=== PATIENT | male | born 1975 | race Caucasian/White ===

== ENCOUNTER 2022-09-25 05:56 | Observation (INO) ==
[2022-09-25] MEDS ORDERED: ONDANSETRON INJ 2 MG/ML 2 ML VIAL IV STA (06:40)
[2022-09-25] MEDS ORDERED: SODIUM CHLORIDE 0.9% 1000ML 1,000 ML IV ONE (06:40)
[2022-09-25] MEDS ORDERED: ACETAMINOPHEN 1,000 MG/100 ML VIAL IV STA (06:40)
[2022-09-25 06:41] LABS: Basophils # (auto) 0.03 K/uL (0-0.2); Basophils % (auto) 0.4 %; Eosinophils # (auto) 0.31 K/uL (0-0.50); Eosinophils % (auto) 3.8 %; Hematocrit (blood only) 48.4 % (42.0-52.0); Hemoglobin 17.3 g/dl (14.0-18.0); Immature Granulocytes # (auto) 0.01 K/uL (0.01-0.20); Immature Granulocytes % (auto) 0.1 %; Lymphocytes # (auto) 1.74 K/uL (1.2-3.4); Lymphocytes % (auto) 21.2 %; Mean Corpuscular Hemoglobin 33.1 pg (25.0-34.0); Mean Corpuscular Hgb Conc 35.7 g/dL (32.0-36.0); Mean Corpuscular Volume 92.5 fL (80.0-100.0); Mean Platelet Volume 8.9 fL (9.4-12.4); Monocytes # (auto) 0.91 K/uL (0.11-0.59); Monocytes % (auto) 11.1 %; Neutrophils # (auto) 5.21 K/uL (1.40-6.50); Neutrophils % (auto) 63.4 %; Platelet Count 224 K/uL (130-400); RDW Coefficient of Variation 12.3 % (11.5-14.5); RDW Standard Deviation 42.2 fL (36.4-46.3); Red Blood Count 5.23 M/uL (4.70-6.10); White Blood Count 8.21 K/ul (4.8-10.8)
--- NOTE | 2022-09-25 06:43 | Emergency Department Note ---
Impression & Plan Partial small bowel obstruction, Factor V Leiden mutation, Acute upper abdominal pain, Vomiting ED Provider Note Name: GAIL DIMAS Age: 47 Sex: M Arrives Via: Walk-In Informant: Patient, ED Provider: Edward Walton MD Chief Complaint: Abdominal pain Impression: As per impressions above Medical Decision Makin-year-old healthy male with a history of factor V Leiden who is on Eliquis arrives for evaluation of severe upper abdominal pain with recurrent vomiting ov er the last 2 days. On examination he has moderate tenderness palpation of the upper abdomen with hyperactive bowel sounds. With the recurrent vomiting I do feel that CT imaging is indicated. Patient does not have any surgical history of his abdomen or other significant abdominal issues. Patient was given IV Tylenol, Zofran, fluids and really does feel somewhat improved following diagnosis. Labs are unremarkable. CT does reveal evidence of partial small bowel obstruction. This is consistent with his hyperactive bowel sounds and vomiting. His stomach is distended he is not actively vomiting he does not feel actively nauseous though he still has some discomfort in his abdomen. I do not feel we need to do NG tube quite at this time. Given no surgical history with a small bowel obstruction I do feel that hospitalization is indicated. I reviewed the case with on-call general surgery who advised hospitalist evaluation and monitoring overnight. They will follow along with the hospitalist team. Patient does not exhibit like an acutely surgical abdomen without peritonitis at this time. He declines further pain medication stating that the IV Tylenol seems to have helped. Hospitalist consulted for further management. Prior Medical Record and Triage/Nursing Notes reviewed by Me Differentials:Pancreatitis, peptic ulcer disease, GERD, cholecystitis, diverticulitis, obstruction, mesenteric ischemia, occlusion, aortic pathology, renal colic amongst multiple other pathologies considered. Vital Signs: reviewed and remarkable for moderately hypertensive on arrival Interventions: Tylenol IV, Zofran IV, normal saline bolus Labs:Reviewed and remarkable for no significant abnormalities other than some mild hyperglycemia Imaging:CT imaging and formal review by me of the abdomen and pelvis with IV contrast reveals findings consistent with a partial versus small bowel obstruction this was confirmed by radiologist Consults:Dr. Patrick of general surgery. Dr. Hansen of the [facility] Hospitalist service Plan: Disposition:Hospitalization. Condition: Good History of Present Illness:47-year-old gentleman arrives for evaluation of abdominal pain. Patient notes he developed nausea and vomiting 2 days ago. This is rapidly worsened. He is now associated with upper abdominal pain. Note s stabbing bandlike pain across the upper abdomen. No radiation to back or lower abdomen. No fevers, chills, chest pain, shortness of breath, back pain, leg swelling, calf pain, urinary/bowel symptoms or other concerning signs or symptoms. He denies any blood in his normal stool he had yesterday. Denies any blood in his emesis. He is on Eliquis for factor V. He did not take his morning Eliquis dose. He tried Tylenol last night for the pain without improvement. Does note both of his children had a GI bug last week they did not seem to have the amount of abdominal pain that he has been having. No previous abdominal surgeries. Denies any falls or injuries. Past History:Factor V, see chart for further history Home Medications:Eliquis Allergies:nkda Vitals:Blood Pressure: 149/104, Pulse 90, RR 18, T 37.2C, O2 98% on RA Physical Exam: GENERAL: Patient is very uncomfortable appearing and in moderate distress. EYES: No scleral icterus, unremarkable pupils. RESPIRATORY: No dyspnea. Clear to auscultation and equal bilaterally. No wheeze, no rhonchi. CARDIOVASCULAR: Regular rate and rhythm.No murmurs, rubs, gallops appreciated. GASTROINTESTINAL: Diffuse upper abdominal TTP with mildly hyperactive bowel sounds, no peritonitis, BACK: No midline tenderness, no CVA tenderness EXTREMITIES: Normal motion all extremities, no cyanosis, no edema. NEUROLOGIC: Alert and oriented, no focal weakness appreciated SKIN: No rash, no jaundice, no diaphoresis. PSYCH: Appropriate GCS: 15 ED Course: Times/Reassessments: Patient is feeling much better after medications declining further pain meds. Agreeable to hospitalization after discussing findings of CT scan. Edward Walton MD Past Med/Surg History Medical History (Updated 09/25/22 @ 18:43 by Edward Walton MD) Factor V Leiden mutation (11/14/12) Hx of deep venous thrombosis MTHFR gene mutation Pulmonary embolism Surgical History (Updated 09/25/22 @ 10:18 by Francie Tobar PA-C) History of nasal surgery Broken nose fixed Family History (Updated 09/25/22 @ 10:48 by Francie Tobar PA-C) Father Heart disease Grandmother (Maternal) Diabetes Social History (Updated 09/25/22 @ 10:19 by Francie Tobar PA-C) Smoking Status: Never smoker Tobacco Type: Cigarettes packs per day: 0.5; Smoking End Date: 06/25/2019; Second Hand Exposure: No; Do You Dip or Chew Tobacco: No; Tobacco Cessation Education Requested by Patient: No Hx Alcohol Use: Yes Alcohol type: beer Hx Substance Use: No Preferred Language: Italian Communication Ability: Effective [place] Required: No Beliefs That Will Affect Care: None Current Living Situation: Family Other Information That Helps Us Care for You: No Feels Safe at Home: Yes Assistive Devices: Glasses Allergies Allergies Allergy/AdvReac Type Severity Reaction Status Date / Time No Known Allergies Allergy Unverified 11/14/12 11:48 Home Meds Home Medications Medication Instructions Recorded Confirmed apixaban 5 mg tablet (Eliquis) 5 mg PO BID 09/25/22 09/25/22 cyanocobalamin (vitamin B-12) 1,000 mcg PO DAILY 09/25/22 09/25/22 1,000 mcg tablet (Vitamin B-12) folic acid 1 mg tablet 1 mg PO DAILY 09/25/22 09/25/22 Results & Data (ED) Vital Signs Vital Signs - 24 hr 09/25/22 05:58 09/25/22 06:26 Temperature 37.2 C Temperature Source Oral Pulse Rate 106 H Pulse Rate [Right] 90 Respiratory Rate 16 18 Respiratory Effort / Characteristics Non-Labored Spontaneous Non-Labored Respiratory Depth Normal Normal Respiratory Pattern Regular Regular Blood Pressure 126/94 Blood Pressure [Right Arm] 149/104 H Blood Pressure Mean 104 Blood Pressure Mean [Right Arm] 119 Blood Pressure Position [Right Arm] Sitting Pulse Oximetry 96 98 Oxygen Delivery Method Room Air Room Air Sepsis Recent Fever Within 48 Hours No Sepsis New/Unexplained Change in Mental Status No Sepsis Action Taken by Nursing No Action Required Laboratory Data 09/25/22 06:20 09/25/22 06:20 Lab Results 09/25/22 09/25/22 Range/Units 06:20 06:20 WBC 8.21 (4.8-10.8) K/ul RBC 5.23 (4.70-6.10) M/uL Hgb 17.3 (14.0-18.0) g/dl Hct 48.4 (42.0-52.0) % MCV 92.5 (80.0-100.0) fL MCH 33.1 (25.0-34.0) pg MCHC 35.7 (32.0-36.0) g/dL RDW Std Deviation 42.2 (36.4-46.3) fL RDW Coeff of Aruna 12.3 (11.5-14.5) % Plt Count 224 (130-400) K/uL MPV 8.9 L (9.4-12.4) fL Immature Gran % (Auto) 0.1 % Neut % (Auto) 63.4 % Lymph % (Auto) 21.2 % [place] % (Auto) 11.1 % Eos % (Auto) 3.8 % Baso % (Auto) 0.4 % Neut # (Auto) 5.21 (1.40-6.50) K/uL Lymph # (Auto) 1.74 (1.2-3.4) K/uL [place] # (Auto) 0.91 H (0.11-0.59) K/uL Eos # (Auto) 0.31 (0-0.50) K/uL Baso # (Auto) 0.03 (0-0.2) K/uL Immature Gran # (Auto) 0.01 (0.01-0.20) K/uL Sodium 136 (136-145) mmol/L Potassium 3.6 (3.5-5.1) mmol/L Chloride 103 (98-107) mmol/L Carbon Dioxide 27 (21-32) mmol/L Anion Gap 6 (3-11) BUN 15 (6-23) mg/dl Creatinine 0.89 (0.6-1.4) mg/dl Est Cr Clr Drug Dosing 115.7 ml/min Est GFR ( Amer) 116.4 ml/min Est GFR (Non-Af Amer) 100.4 ml/min BUN/Creatinine Ratio 16.9 (10-20) Glucose 115 H (70-99(Fasting)) mg/dl Calcium 9.0 (8.5-10.1) mg/dl Total Bilirubin 0.5 (0.2-1.0) mg/dl AST 19 (13-39) U/L ALT 23 (7-52) U/L Alkaline Phosphatase 51 (34-104) U/L Total Protein 7.3 (6.0-8.3) gm/dl Albumin 3.8 (3.4-5.0) gm/dl Globulin 3.5 (2.5-4.0) gm/dl Albumin/Globulin Ratio 1.1 (0.9-2) Lipase 12 (11-82) U/L Administered Medications Sodium Chloride (Nss) 500 mls @ 80 mls/hr IV .Q6H15M CHICHI Stop: 09/26/22 01:30 Last Admin: 09/25/22 17:07 Dose: 80 mls/hr Documented By: Infusion: 09/25/22 17:07 Dose: 80 mls/hr Documented By: Admin: 09/25/22 13:30 Dose: 80 mls/hr Documented By: KEN Acetaminophen (Ofirmev) 1,000 mg in 100 mls @ 400 mls/hr IV Q8H CHICHI Stop: 09/28/22 14:59 Last Admin: 09/25/22 16:59 Dose: Not Given Documented By: TERRANCE Morphine Sulfate (Morphine Sulfate 2 Mg/Ml Carp) 2 mg IV Q4H PRN PRN Reason: Pain, moderate rating 4,5,6 Stop: 10/09/22 11:14 Last Admin: 09/25/22 16:45 Dose: 2 mg Documented By: ADDISON Discontinued Medications Acetaminophen (Ofirmev) 1,000 mg in 100 mls @ 400 mls/hr IV NOW STA Stop: 09/25/22 06:54 Last Infusion: 09/25/22 07:19 Dose: 0 mls/hr Documented By: Admin: 09/25/22 07:04 Dose: 400 mls/hr Documented By: Sodium Chloride (Nss 1000ml) 1,000 mls @ 999 mls/hr IV .Q1H1M ONE Stop: 09/25/22 07:40 Last Infusion: 09/25/22 08:05 Dose: 0 mls/hr Documented By: Admin: 09/25/22 07:04 Dose: 999 mls/hr Documented By: Ioversol (Optiray 350 100ml) 94 ml IV ONCE ONE Stop: 09/25/22 08:29 Last Admin: 09/25/22 08:28 Dose: 94 ml Documented By: AIXA Ketorolac Tromethamine (Ketorolac Tromethamine 15 Mg/Ml Vial) 15 mg IV NOW ONE Stop: 09/25/22 14:34 Last Admin: 09/25/22 16:58 Dose: Not Given Documented By: TERRANCE Ondansetron HCl (Ondansetron Inj 2 Mg/Ml 2 Ml Vial) 4 mg IV NOW STA Stop: 09/25/22 06:41 Last Admin: 09/25/22 07:04 Dose: 4 mg Documented By: ENS Imaging Data Radiologist's Impression: Abdomen/Pelvis CT 09/25/22 06:[address] WITH IV CONTRAST CT DOSE: 1221.58 mGy.cm HISTORY: Acute generalized abdominal pain diffuse upper abdominal pain TECHNIQUE: Multiaxial CT images of the abdomen and pelvis were performed following the IV administration of 94 cc of Optiray, A dose lowering technique was utilized adhering to the principles of ALARA. COMPARISON STUDY: Scrotal ultrasound 11/09/2013 FINDINGS: The imaged lower chest demonstrates no acute abnormality. The heart is upper limits of normal in size. No pneumatosis or pneumoperitoneum. The spleen, pancreas, gallbladder, adrenal glands and liver appear unremarkable. Patency of the hepatic and portal veins. There are a few subcentimeter hypodense foci of the kidneys which are too small to characterize, likely cysts. No hydronephrosis. Prostamegaly. Mild urinary bladder wall thickening with partial distention. Aorta and IVC are unremarkable. No lymphadenopathy. Colonic diverticulosis. Air-fluid levels are noted throughout the colon and rectum. Noninflamed appendix. Fluid-filled mildly dilated loops of small bowel measure up to 3.2 cm. Mild interloop edema with trace ascites. Decompressed loops of bowel within the abdominal right lower quadrant. No significant bowel wall thickening identified. Tiny fat filled umbilical hernia. No acute fracture. IMPRESSION: 1. Several mildly dilated air and fluid-filled loops of small bowel within the abdomen and pelvis are noted with decompressed loops within the right lower quadrant. Findings are suggestive of a partial small bowel obstruction. Follow- up is needed. 2. Mild interloop edema with trace ascites. 3. Colonic diverticulosis. 4. Normal appendix. ACT 112: Negative or not required by law. The above report was generated using voice recognition software. It may contain grammatical, syntax or spelling errors. Electronically signed by: Patrick Madrigal M.D. 09/25/2022 9:01 AM Discharge Plan Visit Data Chief Complaint: Abdominal Pain Stated Complaint: SEVERE ABDOMINAL PAIN ED Provider: Edward Walton Discharge Problem: Partial small bowel obstruction, Factor V Leiden mutation, Acute upper abdominal pain, Vomiting Patient Disposition: Admitted As Inpatient Discharge Instructions Interventions: ED Discharge Assessment Last Done: 09/25/22 13:01
[2022-09-25 06:53] LABS: Albumin Globulin Ratio 1.1 (0.9-2); Albumin Level 3.8 gm/dl (3.4-5.0); BUN Creatinine Ratio 16.9 (10-20); Bilirubin,Total 0.5 mg/dl (0.2-1.0); Creatinine Clr Calc Pharmacy 115.7 ml/min; Est GFR (African American) 116.4 ml/min; Est GFR (Non-African American) 100.4 ml/min; Globulin 3.5 gm/dl (2.5-4.0); Potassium 3.6 mmol/L (3.5-5.1); Total Protein 7.3 gm/dl (6.0-8.3)
[2022-09-25] MEDS ORDERED: OPTIRAY 350 100ml IV ONE (08:28)
--- NOTE | 2022-09-25 09:02 | CT Scan Report ---
ABDOMEN AND PELVIS CT WITH IV CONTRAST CT DOSE: 1221.58 mGy.cm HISTORY: Acute generalized abdominal pain diffuse upper abdominal pain TECHNIQUE: Multiaxial CT images of the abdomen and pelvis were performed following the IV administrat ion of 94 cc of Optiray, A dose lowering technique was utilized adhering to the principles of ALARA. COMPARISON STUDY: Scrotal ultrasound 11/09/2013 FINDINGS: The imaged lower chest demonstrates no acute abnormality. The heart is upper limits of norm al in size. No pneumatosis or pneumoperitoneum. The spleen, pancreas, gallbladder, adrenal glands and liver appear unremarkable. Patency of the hepatic and portal veins. There are a few subcentimeter hypodense foci of the kidneys which are too small to characterize, like ly cysts. No hydronephrosis. Prostamegaly. Mild urinary bladder wall thickening with partial distenti on. Aorta and IVC are unremarkable. No lymphadenopathy. Colonic diverticulosis. Air-fluid levels are noted throughout the colon and rectum. Noninflamed appen alverto. Fluid-filled mildly dilated loops of small bowel measure up to 3.2 cm. Mild interloop edema with trace ascites. Decompressed loops of bowel within the abdominal right lower quadrant. No significant bowel wall thickening identified. Tiny fat filled umbilical hernia. No acute fracture. IMPRESSION: 1. Several mildly dilated air and fluid-filled loops of small bowel within the abdomen and pelvis are noted with decompressed loops within the right lower quadrant. Findings are suggestive of a partial small bowel obstruction. Follow-up is needed. 2. Mild interloop edema with trace ascites. 3. Colonic diverticulosis. 4. Normal appendix. ACT 112: Negative or not required by law. The above report was generated using voice recognition software. It may contain grammatical, syntax o r spelling errors. Electronically signed by: Patrick Madrigal M.D. 09/25/2022 9:01 AM
--- NOTE | 2022-09-25 10:22 | History & Physical Report ---
Date of Service September 25, 2022 Assessment & Plan (1) Partial small bowel obstruction: (2) Factor V Leiden mutation: (3) MTHFR gene mutation: (4) Obesity (BMI 35.0-39.9 without comorbidity): Plan: -Admit to [facility] -Check lactic acid, blood cultures, Check covid swab, influ and rsv, stool culture PCR as patient reports having children with viral illness last week. Most likely that partial small bowel obstruction seen on imaging today is secondary to viral etiology and inflammation of the bowel, likely will improve with conservative treatment. -CT imaging reviewed personally, and reviewed with the patient at bedside to show him the partial SBO -Pain control with IV Tylenol Q8Hprn, allow IV MS Q4H prn for breakthrough pain -N.p.o., allow ice chips to wet mouth -May continue Eliquis - hx of PE and DVT years ago. Encourage ambulation while in hospital -General surgery consulted, appreciate input, conservative treatment, no current needs for surgical procedure -Encourage diet and weight loss with BMI of 36.1 DVT PPx: SCDs, Eliquis, encourage ambulation Code: Full Likely to remain in the hospital overnight, possible discharge within 1 to 2 days A total of 75 minutes were spent with greater than 50% of that time face to face with the patient, personally reviewing all current laboratories, imaging studies, past medication reconciliation, outpatient chart review, and discussion with specialists to collaborate care for the patient with attending. Please see attending documentation for corrections and/or additions. History of Present Illness Chief Complaint: Abdominal Pain Primary Care Provider: Pj Elaine MD This is a 47 yo M with PMHx of Factor V Leiden, MTHFR mutation, with hx of PE , tobacco use disorder, obesity with BMI of 26 and hx of COVID-19 who presents with worsening abdominal pain for the past 2 days. He notes that on Friday after eating lunch she became ill, with nausea, vomiting and abdominal pain. He was unable to tolerate much p.o. intake the rest of Friday. Again on Friday he proceeded to have 2 bouts of nausea and vomiting with mostly bile-like emesis. He has been bloated as well. This morning he again was nauseous and vomited. He also reports having 1 bowel movement this morning which was normal formed stool, no blood. He has not passed any flatus since bowel movement today. He notes that his 2 children ages 8 and 9 had GI illness last week 1 at the beginning of the week and the other had it later in the week with nausea and vomiting. So initially the patient presumed that he had same thing as his kids did. Due to progressive pain he presented to the ER. He has not had anything to eat or drink today. Patient did take his morning Eliquis. He denies any history of surgeries other than fixing a broken nose many years ago. Denies any abdominal procedures or prior issues with bowels. Imaging reveals partial small bowel obstruction with trace ascites, colonic diverticulosis. Discussion was held with Dr. Patrick, general surgery at bedside, he agrees to proceed with conservative treatment. No need for NG tube or surgical procedure at this time. Allergies Allergy/AdvReac Type Severity Reaction Status Date / Time No Known Allergies Allergy Unverified 11/14/12 11:48 Home Medications Medication Instructions Recorded Confirmed Type apixaban 5 mg tablet (Eliquis) 5 mg PO BID 09/25/22 09/25/22 History cyanocobalamin (vitamin B-12) 1,000 mcg PO DAILY 09/25/22 09/25/22 History 1,000 mcg tablet (Vitamin B-12) folic acid 1 mg tablet 1 mg PO DAILY 09/25/22 09/25/22 History Past Med/Surg History Medical History (Updated 09/25/22 @ 18:43 by Edward Walton MD) Factor V Leiden mutation (11/14/12) Hx of deep venous thrombosis MTHFR gene mutation Pulmonary embolism Surgical History (Updated 09/25/22 @ 10:18 by Francie Tobar PA-C) History of nasal surgery Broken nose fixed Family History (Updated 09/25/22 @ 10:48 by Francie Tobar PA-C) Father Heart disease Grandmother (Maternal) Diabetes Social History (Updated 09/25/22 @ 10:19 by Francie Tobar PA-C) Smoking Status: Never smoker Tobacco Type: Cigarettes packs per day: 0.5; Smoking End Date: 06/25/2019; Second Hand Exposure: No; Do You Dip or Chew Tobacco: No; Tobacco Cessation Education Requested by Patient: No Hx Alcohol Use: Yes Alcohol type: beer Hx Substance Use: No Preferred Language: Sinhala Communication Ability: Effective Tennis Centre Manager Required: No Beliefs That Will Affect Care: None Current Living Situation: Family Other Information That Helps Us Care for You: No Feels Safe at Home: Yes Assistive Devices: Glasses Review of Systems Review of Systems: Constitutional: No fever, sweats or chills Eyes: No diplopia, no worsening or blurred vision ENT: normal hearing, no trouble swallowing Respiratory: No cough, sputum, dyspnea at rest or on exertion Cardiovascular: No chest pain, tightness or palpitations Abdomen: As per HPI, + moderate pain, distension, nausea, vomiting with alst BM this morning. Musculoskeletal: No joint pain, calf pain, swelling Neurologic: No weakness, numbness/tingling, or balance problems Psychiatric: No anxiety or depression Skin: No rash or itch Physical Exam Physical Exam: General: awake, alert, no apparent distress, obese with BMI of 36 Head: Normocephalic, atraumatic ENT: PERRL, EOMI, no pharyngeal exudate, mucous membranes moist Chest: Clear to auscultation, on room air, no adventitious breath sounds Cardiac: Regular rate and rhythm, no murmur, no JVD, normal peripheral pulses, good capillary refill Abdominal: hypoactive BS x 4 quadrants, no high pitched tinkling, mildly distended, RUQ tenderness to palpation, no rebound or guarding Extremities: Normal inspection, no peripheral edema or erythema, calfs nontender to palpation Psych: Normal mood and affect Neuro: AAO x 3, strength intact bilaterally and rated 5/5, no motor deficits, speech is clear, no peripheral sensory deficits Results & Data Results & Data ([facility]) Vital Signs (Past 12 Hours) Vital Signs Temp Pulse Pulse Resp BP BP Pulse Ox 09/25/22 06:26 90 18 149/104 H 98 09/25/22 05:58 37.2 C 106 H 16 126/94 96 O2 Del Method 09/25/22 06:26 Room Air 09/25/22 05:58 Room Air Laboratory Results 09/25/22 09/25/22 06:20 06:20 WBC 8.21 RBC 5.23 Hgb 17.3 Hct 48.4 MCV 92.5 MCH 33.1 MCHC 35.7 RDW Std Deviation 42.2 RDW Coeff of Aruna 12.3 Plt Count 224 MPV 8.9 L Immature Gran % (Auto) 0.1 Neut % (Auto) 63.4 Lymph % (Auto) 21.2 [place] % (Auto) 11.1 Eos % (Auto) 3.8 Baso % (Auto) 0.4 Neut # (Auto) 5.21 Lymph # (Auto) 1.74 [place] # (Auto) 0.91 H Eos # (Auto) 0.31 Baso # (Auto) 0.03 Immature Gran # (Auto) 0.01 Sodium 136 Potassium 3.6 Chloride 103 Carbon Dioxide 27 Anion Gap 6 BUN 15 Creatinine 0.89 Est Cr Clr Drug Dosing 115.7 Est GFR ( Amer) 116.4 Est GFR (Non-Af Amer) 100.4 BUN/Creatinine Ratio 16.9 Glucose 115 H Calcium 9.0 Total Bilirubin 0.5 AST 19 ALT 23 Alkaline Phosphatase 51 Total Protein 7.3 Albumin 3.8 Globulin 3.5 Albumin/Globulin Ratio 1.1 Lipase 12 Diagnostic Findings Abdomen/Pelvis CT 09/25/22 06:[address] WITH IV CONTRAST CT DOSE: 1221.58 mGy.cm HISTORY: Acute generalized abdominal pain diffuse upper abdominal pain TECHNIQUE: Multiaxial CT images of the abdomen and pelvis were performed following the IV administration of 94 cc of Optiray, A dose lowering technique was utilized adhering to the principles of ALARA. COMPARISON STUDY: Scrotal ultrasound 11/09/2013 FINDINGS: The imaged lower chest demonstrates no acute abnormality. The heart is upper limits of normal in size. No pneumatosis or pneumoperitoneum. The spleen, pancreas, gallbladder, adrenal glands and liver appear unremarkable. Patency of the hepatic and portal veins. There are a few subcentimeter hypodense foci of the kidneys which are too small to characterize, likely cysts. No hydronephrosis. Prostamegaly. Mild urinary bladder wall thickening with partial distention. Aorta and IVC are unremarkable. No lymphadenopathy. Colonic diverticulosis. Air-fluid levels are noted throughout the colon and rectum. Noninflamed appendix. Fluid-filled mildly dilated loops of small bowel measure up to 3.2 cm. Mild interloop edema with trace ascites. Decompressed loops of bowel within the abdominal right lower quadrant. No significant bowel wall thickening identified. Tiny fat filled umbilical hernia. No acute fracture. IMPRESSION: 1. Several mildly dilated air and fluid-filled loops of small bowel within the abdomen and pelvis are noted with decompressed loops within the right lower quadrant. Findings are suggestive of a partial small bowel obstruction. Follow- up is needed. 2. Mild interloop edema with trace ascites. 3. Colonic diverticulosis. 4. Normal appendix. ACT 112: Negative or not required by law. The above report was generated using voice recognition software. It may contain grammatical, syntax or spelling errors. Electronically signed by: Patrick Madrigal M.D. 09/25/2022 9:01 AM Code Status & VTE Plan Code Status Full code Supervising Physician Co-Signing Physician Notes I have seen and examined the patient and have discussed the case with the provider above. I agree with the assessment and plan as stated with the following exceptions. 47-year-old man presented with abdominal pain persisted for the past few days. Reports having children with viral illness last week. He personally reports vomiting and has no appetite. He does report one bowel movement that was normal this morning. Work-up revealed partial small bowel obstruction on CT. Patient has no history of abdominal surgery in the past. No history of early colon cancer in the family. He continues on Eliquis for history of PE and DVT in the setting of [place] HFR gene mutation and factor V Leiden mutation historically. On physical exam abdomen is slightly distended but still soft with upper greater than lower abdominal tenderness to palpation. Cardiac exam reveals S1-S2 with no evidence of murmur with a regular rate and rhythm. Lungs are clear to auscultation bilaterally. He is diaphoretic on exam, especially on his back which he says is not normal for him. No gross focal deficits from a neuromuscular perspective. He is mentating clearly. He is obese. He is in no acute distress. Imaging as above. Labs reveal no evidence of leukocytosis, lactate is normal, lipase is normal, urinalysis is concentrated with evidence of microscopic hematuria. No evidence of infection is present. SARS-CoV-2 check is negative. Overall this is a young man with recent GI illness and sick contacts presenting with fluid-filled loops of small bowel consistent with partial small bowel obstruction possibly secondary to an acute GI illness. Continue with conservative measures including bowel rest. Per surgery who saw him in the ER, there is no surgical indication now and conservative treatment with IV fluids pain control and repeat Cayley and labs in the morning as recommended. DO Tyrone
--- NOTE | 2022-09-25 11:01 | Surgery Consultation ---
Date of Consultation September 25, 2022 Assessment & Plan (1) Partial small bowel obstruction: pt is a 47 year-old male who presents to ER with 3 days history abdominal pain with nausea and vomiting, IMP: partial SBO, no surgery indication now, conservative treatment first, NPO IV fluid, control pain, repeat KUB and labs in morning, will F/U, Thnaks, History of Present Illness Reason for Consultation: partial SBO Requesting Physician: Edward Vargas MD History of Present Illness CC: abdominal pain, History of Present Illness:47-year-old gentleman arrives for evaluation of abdominal pain. Patient notes he developed nausea and vomiting 2 days ago. This is rapidly worsened. He is now associated with upper abdominal pain. Notes stabbing bandlike pain across the upper abdomen. No radiation to back or lower abdomen. No fevers, chills, chest pain, shortness of breath, back pain, leg swelling, calf pain, urinary/bowel symptoms or other concerning signs or symptoms. He denies any blood in his normal stool he had yesterday. Denies any blood in his emesis. He is on Eliquis for factor V. He did not take his morning Eliquis dose. He tried Tylenol last night for the pain without improvement. Does note both of his children had a GI bug last week they did not seem to have the amount of abdominal pain that he has been having. No previous abdominal surgeries. Denies any falls or injuries. I ( Elaine Patrick MD ) got a call for consult partial SBO, I reviewed pt's H/P, labs and CT scan with pt, pt passed BM this morning, now pt feels better, no significant abdominal pain, Past History:Factor V, see chart for further history Home Medications:Eliquis Allergies:nkda Allergies Allergy/AdvReac Type Severity Reaction Status Date / Time No Known Allergies Allergy Unverified 11/14/12 11:48 Home Medications Medication Instructions Recorded Confirmed Type Cyanocobalamin (Vitamin B-12) 1,000 mcg PO DAILY #0 tabs 11/14/12 History FOLIC ACID (FOLVITE) 1 mg PO DAILY #0 tabs 11/14/12 History WARFARIN SODIUM 7.5 mg PO DAILY #0 tabs 11/14/12 History Patient History Medical History (Updated 09/25/22 @ 10:20 by Francie Tobar PA-C) Factor V Leiden mutation (11/14/12) Hx of deep venous thrombosis MTHFR gene mutation Pulmonary embolism Surgical History (Updated 09/25/22 @ 10:18 by Francie Tobar PA-C) History of nasal surgery Broken nose fixed Family History (Updated 09/25/22 @ 10:48 by Francie Tobar PA-C) Father Heart disease Grandmother (Maternal) Diabetes Social History (Updated 09/25/22 @ 10:19 by Francie Tobar PA-C) Smoking Status: Former smoker Tobacco Type: Cigarettes packs per day: 0.5; Smoking End Date: 06/25/2019; Hx Alcohol Use: Yes Hx Substance Use: No Preferred Language: Slovenian Feels Safe at Home: Yes Review of Systems Constitutional: obesity Eyes: as per Subjective / HPI Respiratory: as per Subjective / HPI Cardiovascular: as per Subjective / HPI Gastrointestinal: as per Subjective / HPI Genitourinary: + as per Subjective / HPI Musculoskeletal: as per Subjective / HPI Neurologic: as per Subjective / HPI Psychiatric: as per Subjective / HPI Endocrine: as per Subjective / HPI Hematologic / Lymphatic: Factor V Leiden mutation Physical Exam Constitutional: obesity, no distress Eyes: PERRL, conjunctivae normal, anicteric sclerae Neck: trachea midline, no thyromegaly Respiratory: normal respiratory effort, lungs clear to auscultation Cardiovascular: RRR, no murmur, no edema Gastrointestinal (Abdomen): soft, mild tenderness at epigastric area, no rebound pain, no distend, BS +, Musculoskeletal: no cyanosis or clubbing, extremities motor strength 5/5 Neurologic: patellar DTR's 2+ bilat, sensation intact Psychiatric: A+Ox3, euthymic affect Results & Data ([facility]) Vital Signs (Past 12 Hours) Vital Signs Temp Pulse Pulse Resp BP BP Pulse Ox 09/25/22 06:26 90 18 149/104 H 98 09/25/22 05:58 37.2 C 106 H 16 126/94 96 O2 Del Method 09/25/22 06:26 Room Air 09/25/22 05:58 Room Air Laboratory Results Abnormal lab results 09/25/22 09/25/22 Range/Units 06:20 06:20 MPV 8.9 L (9.4-12.4) fL [place] # (Auto) 0.91 H (0.11-0.59) K/uL Glucose 115 H (70-99(Fasting)) mg/dl Diagnostic Findings ABDOMEN AND PELVIS CT WITH IV CONTRAST CT DOSE: 1221.58 mGy.cm HISTORY: Acute generalized abdominal pain diffuse upper abdominal pain TECHNIQUE: Multiaxial CT images of the abdomen and pelvis were performed following the IV administration of 94 cc of Optiray, A dose lowering technique was utilized adhering to the principles of ALARA. COMPARISON STUDY: Scrotal ultrasound 11/09/2013 FINDINGS: The imaged lower chest demonstrates no acute abnormality. The heart is upper limits of normal in size. No pneumatosis or pneumoperitoneum. The spleen, pancreas, gallbladder, adrenal glands and liver appear unremarkable. Patency of the hepatic and portal veins. There are a few subcentimeter hypodense foci of the kidneys which are too small to characterize, likely cysts. No hydronephrosis. Prostamegaly. Mild urinary bladder wall thickening with partial distention. Aorta and IVC are unremarkable. No lymphadenopathy. Colonic diverticulosis. Air-fluid levels are noted throughout the colon and rectum. Noninflamed appendix. Fluid-filled mildly dilated loops of small bowel measure up to 3.2 cm. Mild interloop edema with trace ascites. Decompressed loops of bowel within the abdominal right lower quadrant. No significant bowel wall thickening identified. Tiny fat filled umbilical hernia. No acute fracture. IMPRESSION: 1. Several mildly dilated air and fluid-filled loops of small bowel within the abdomen and pelvis are noted with decompressed loops within the right lower quadrant. Findings are suggestive of a partial small bowel obstruction. Follow- up is needed. 2. Mild interloop edema with trace ascites. 3. Colonic diverticulosis. 4. Normal appendix.
[2022-09-25] MEDS ORDERED: MoRPHine SULFATE 2 MG/ML CARP IV PRN (11:15)
[2022-09-25] MEDS ORDERED: MoRPHine SULFATE 4 MG/ML 1 ML CARP\\VIAL IV PRN (11:15)
[2022-09-25] MEDS ORDERED: ACETAMINOPHEN 1,000 MG/100 ML VIAL IV PRN (13:01)
[2022-09-25] MEDS: SODIUM CHLORIDE 0.9% 500 ML IV SCH ×2 (13:30→17:07)
[2022-09-25] MEDS ORDERED: KETOROLAC TROMETHAMINE 15 MG/ML VIAL IV ONE ×3 (14:33→19:35)
[2022-09-25] MEDS: ACETAMINOPHEN 1,000 MG/100 ML VIAL IV SCH ×2 (16:59→22:03)
[2022-09-25 19:08] LABS: Appearance Urine Clear (Clear); Bacteria Urine Automated Negative (Negative); Bilirubin Urine Negative (Negative); Blood Urine Trace (Negative); Color Urine Dark Yellow; Glucose Urine UA Negative (Negative); Ketones Urine 2+ (Negative); Leukocyte Esterase Urine Negative (Negative); Nitrite Urine Negative (Negative); Protein Urine Trace (Negative); Specific Gravity Urine > 1.045 (1.000-1.030); Urobilinogen Urine Negative (Negative); pH Urine 5.5 (4.5-7.5)
[2022-09-25] MEDS ORDERED: MoRPHine SULFATE 2 MG/ML CARP IV STA (19:20)
[2022-09-25] MEDS: APIXABAN 5 MG TABLET PO SCH (20:28)
[2022-09-26] MEDS: D5W AND NSS 1,000 ML IV SCH ×3 (04:17→20:28)
[2022-09-26] MEDS: ACETAMINOPHEN 1,000 MG/100 ML VIAL IV SCH ×3 (06:14→23:00)
[2022-09-26] MEDS: APIXABAN 5 MG TABLET PO SCH (08:37)
[2022-09-26 08:42] LABS: Hematocrit (blood only) 42.3 % (42.0-52.0); Hemoglobin 14.9 g/dl (14.0-18.0); Mean Corpuscular Hemoglobin 32.7 pg (25.0-34.0); Mean Corpuscular Hgb Conc 35.2 g/dL (32.0-36.0); Mean Platelet Volume 8.9 fL (9.4-12.4); Platelet Count 215 K/uL (130-400); RDW Coefficient of Variation 12.5 % (11.5-14.5); Red Blood Count 4.55 M/uL (4.70-6.10); White Blood Count 6.81 K/ul (4.8-10.8)
[2022-09-26 09:42] LABS: Basophils # (auto) 0.03 K/uL (0-0.2); Basophils % (auto) 0.4 %; Eosinophils # (auto) 0.41 K/uL (0-0.50); Eosinophils % (auto) 5.8 %; Immature Granulocytes # (auto) 0.02 K/uL (0.01-0.20); Immature Granulocytes % (auto) 0.3 %; Lymphocytes # (auto) 1.84 K/uL (1.2-3.4); Lymphocytes % (auto) 26.2 %; Monocytes # (auto) 0.75 K/uL (0.11-0.59); Monocytes % (auto) 10.7 %; Neutrophils # (auto) 3.97 K/uL (1.40-6.50); Neutrophils % (auto) 56.6 %
[2022-09-26 10:10] LABS: INR 1.1 (0.9-1.1); Partial Thromboplastin Ratio 1.1; Partial Thromboplastin Time 30.6 Seconds (21.0-31.0); Prothrombin Time 11.4 Seconds (9.0-12.0)
[2022-09-26 11:05] LABS: BUN Creatinine Ratio 22.9 (10-20); Calcium 8.3 mg/dl (8.5-10.1); Creatinine Clr Calc Pharmacy 144.3 ml/min; Est GFR (African American) 128.4 ml/min; Est GFR (Non-African American) 110.8 ml/min; Phosphorus 2.5 mg/dl (2.5-4.9); Potassium 3.6 mmol/L (3.5-5.1)
--- NOTE | 2022-09-26 11:08 | XRay Report ---
KUB CLINICAL HISTORY: Follow-up small bowel obstruction. FINDINGS: 3 AP supine abdominal radiographs are correlated with abdominal CT dated 09/25/2022. There ar e persistent distended and gas-filled loops of small bowel which measure up to 3.6 cm. This likely re presents persistent small bowel obstruction. There is no complete obstruction, as gas is noted within the colon. No evidence of intraperitoneal free air is seen on these supine images. There are no abno rmal abdominal calcifications. The bony structures appear intact. IMPRESSION: There is evidence of persistent small bowel obstruction. This is likely partial. Electronically signed by: Rios Larson M.D. 09/26/2022 11:07 AM
--- NOTE | 2022-09-26 15:37 | Hospitalist Progress Note ---
Date of Service September 26, 2022 Assessment & Plan (1) Partial small bowel obstruction: (2) Factor V Leiden mutation: (3) MTHFR gene mutation: (4) Obesity (BMI 35.0-39.9 without comorbidity): Plan: This is a 47 yo M with PMHx of Factor V Leiden, MTHFR mutation, with hx of PE , tobacco use disorder, obesity with BMI of 26 and hx of COVID-19 who presents with worsening abdominal pain for the past 2 days and was found to have small bowel obstruction. Partial small bowel obstruction Possibly secondary to an acute GI illness KUB still showing persistent partial SBO; reviewed personally Pain control with IV Tylenol Q8Hprn, allow IV MS Q4H prn for breakthrough pain General surgery consulted, appreciate input, conservative treatment, no current needs for surgical procedure N.p.o., allow ice chips to wet mouth - diet advancement per surgery Factor V Leiden mutation MTHFR gene mutation May continue Eliquis - hx of PE and DVT years ago. Encourage ambulation while in hospital Obesity Encourage diet and weight loss with BMI of 36.1 DVT PPx: SCDs, Eliquis, encourage ambulation Code: Full Admitted to med/surg A total of 35 minutes were spent with greater than 50% of that time face to face with the patient, personally reviewing all current laboratories, imaging studies, past medication reconciliation, outpatient chart review, and discussion with specialists to collaborate care for the patient with attending. Please see attending documentation for corrections and/or additions. Admission and Anticipated Discharge Date Admission Date: September 25, 2022 Supervising Physician Co-Signing Physician Notes Patient is seen and examined at bedside. Abdominal pain resolved. Denies any nausea, vomiting, chest pain, dyspnea. + Flatus, no bowel movement this morning. On exam patient is obese, no apparent distress, normocephalic atraumatic, EOMI, normal breath sounds, clear to auscultation, S1-S2, no murmur, no pedal edema, abdomen soft, nontender, decreased bowel sounds, alert, awake, oriented, grossly no focal deficits. Patient is admitted for management of partial small bowel obstruction. KUB from this morning suggestive of persistent partial SBO. Continue IV fluids, bowel rest, and pain control. Appreciate surgery input. Factor V Leiden mutation, MTHFR gene mutation: we will hold Eliquis for now. IV heparin while hospitalized. I personally reviewed the record. Patient is interviewed and examined at bedside. Patient's care is coordinated with Zahira Jordan PA-C. Please refer to the documentation above for details of patient's presentation and for discussion of other issues. Subjective Seen and examined in 378-2. Feeling much better this morning. No longer nauseated and no vomiting or abdominal pain. Passing flatus. No fever, chills, lightheadedness, CP, SOB, dysuria. Review of Systems Review of Systems: At least ten systems reviewed and negative except as noted in the HPI. Physical Exam Physical Exam: Gen: WD/WN, NAD, sitting in bed, A&Ox3 HEENT: Normocephalic, atraumatic, conjunctivae moist, sclerae anicteric, mucous membranes moist Lung: Clear to Auscultation bilaterally, no wheezes/rales/rhonchi Heart: Regular rate, regular rhythm, no murmurs, rubs, or gallops Abdomen: Soft, NT, ND, hypoactive bowel sounds Extremities: no edema Skin: Warm, no rash Results & Data Results & Data ([facility]) Vital Signs (Past 12 Hours) Vital Signs Temp Pulse Resp BP Pulse Ox O2 Del Method 09/26/22 07:53 36.6 C 57 L 20 94/53 L 92 Room Air Laboratory Results Short CBC 09/26/22 Range/Units 08:16 WBC 6.81 (4.8-10.8) K/ul Hgb 14.9 (14.0-18.0) g/dl Hct 42.3 (42.0-52.0) % Plt Count 215 (130-400) K/uL BMP 09/26/22 08:16 Sodium 138 Potassium 3.6 Chloride 106 Carbon Dioxide 30 BUN 16 Creatinine 0.70 Glucose 91 Calcium 8.3 L Urine 09/25/22 Range/Units 18:35 Urine Color Dark Yellow Urine Appearance Clear (Clear) Urine pH 5.5 (4.5-7.5) Ur Specific [place] > 1.045 H (1.000-1.030) Urine Protein Trace H (Negative) Urine Glucose (UA) Negative (Negative) Diagnostic Findings Abdomen/Pelvis CT 09/25/22 06:[address] WITH IV CONTRAST CT DOSE: 1221.58 mGy.cm HISTORY: Acute generalized abdominal pain diffuse upper abdominal pain TECHNIQUE: Multiaxial CT images of the abdomen and pelvis were performed following the IV administration of 94 cc of Optiray, A dose lowering technique was utilized adhering to the principles of ALARA. COMPARISON STUDY: Scrotal ultrasound 11/09/2013 FINDINGS: The imaged lower chest demonstrates no acute abnormality. The heart is upper limits of normal in size. No pneumatosis or pneumoperitoneum. The spleen, pancreas, gallbladder, adrenal glands and liver appear unremarkable. Patency of the hepatic and portal veins. There are a few subcentimeter hypodense foci of the kidneys which are too small to characterize, likely cysts. No hydronephrosis. Prostamegaly. Mild urinary bladder wall thickening with partial distention. Aorta and IVC are unremarkable. No lymphadenopathy. Colonic diverticulosis. Air-fluid levels are noted throughout the colon and rectum. Noninflamed appendix. Fluid-filled mildly dilated loops of small bowel measure up to 3.2 cm. Mild interloop edema with trace ascites. Decompressed loops of bowel within the abdominal right lower quadrant. No significant bowel wall thickening identified. Tiny fat filled umbilical hernia. No acute fracture. IMPRESSION: 1. Several mildly dilated air and fluid-filled loops of small bowel within the abdomen and pelvis are noted with decompressed loops within the right lower quadrant. Findings are suggestive of a partial small bowel obstruction. Follow- up is needed. 2. Mild interloop edema with trace ascites. 3. Colonic diverticulosis. 4. Normal appendix. ACT 112: Negative or not required by law. The above report was generated using voice recognition software. It may contain grammatical, syntax or spelling errors. Electronically signed by: Patrick Madrigal M.D. 09/25/2022 9:01 AM KUB X-Ray 09/26/22 07:00 KUB CLINICAL HISTORY: Follow-up small bowel obstruction. FINDINGS: 3 AP supine abdominal radiographs are correlated with abdominal CT dated 09/25/2022. There are persistent distended and gas-filled loops of small bowel which measure up to 3.6 cm. This likely represents persistent small bowel obstruction. There is no complete obstruction, as gas is noted within the colon. No evidence of intraperitoneal free air is seen on these supine images. There are no abnormal abdominal calcifications. The bony structures appear intact. IMPRESSION: There is evidence of persistent small bowel obstruction. This is likely partial. Electronically signed by: Rios Larson M.D. 09/26/2022 11:07 AM
--- NOTE | 2022-09-26 16:23 | Surgery Progress Note ---
Date of Service September 26, 2022 Assessment & Plan (1) Partial small bowel obstruction: Plan: 47 year-old male who presents to ER with 3 days history abdominal pain with nausea and vomiting, PSBO on CT scan, likely secondary to gastrointestinal illness, no prior history of abdominal surgeries. Kids had vomiting last week. KUB today showing dilated SB measuring 3.6 cm however there is gas throughout the colon + flatus pain , n,v resolved Plan: No surgical intervention required at this time Clear liquids, advised to go slow encouraged ambulating hallway to increase GI motility Continue medical management Admission and Anticipated Discharge Date Admission Date: September 25, 2022 Subjective feeling great today no abdominal pain, no n,v passing gas, no bowel movement does not feel distended hungry Physical Exam Constitutional: WD/WN, vitals as above + obese; no acute distress and not ill appearing Gastrointestinal (Abdomen): Inspection/Auscultation: abdomen normal to inspection and + hypoactive bowel sounds; abdomen not distended and + abnormal bowel sounds Percussion/Palpation: abdomen soft; abdomen nontender, no guarding and abdomen not rigid Skin: no rashes, warm and dry Psychiatric: A+Ox3, euthymic affect Results & Data ([facility]) Vital Signs (Past 12 Hours) Vital Signs Temp Pulse Resp BP Pulse Ox O2 Del Method 09/26/22 15:54 36.5 C 56 L 19 148/92 H 95 Room Air 09/26/22 07:53 36.6 C 57 L 20 94/53 L 92 Room Air Laboratory Results 09/26/22 09/26/22 09/26/22 Range/Units 09:35 08:16 08:16 WBC 6.81 (4.8-10.8) K/ul RBC 4.55 L (4.70-6.10) M/uL Hgb 14.9 (14.0-18.0) g/dl Hct 42.3 (42.0-52.0) % MCV 93.0 (80.0-100.0) fL MCH 32.7 (25.0-34.0) pg MCHC 35.2 (32.0-36.0) g/dL RDW Std Deviation 43.0 (36.4-46.3) fL RDW Coeff of Aruna 12.5 (11.5-14.5) % Plt Count 215 (130-400) K/uL MPV 8.9 L (9.4-12.4) fL Immature Gran % (Auto) 0.3 % Neut % (Auto) 56.6 % Lymph % (Auto) 26.2 % [place] % (Auto) 10.7 % Eos % (Auto) 5.8 % Baso % (Auto) 0.4 % Neut # (Auto) 3.97 (1.40-6.50) K/uL Lymph # (Auto) 1.84 (1.2-3.4) K/uL [place] # (Auto) 0.75 H (0.11-0.59) K/uL Eos # (Auto) 0.41 (0-0.50) K/uL Baso # (Auto) 0.03 (0-0.2) K/uL Immature Gran # (Auto) 0.02 (0.01-0.20) K/uL PT 11.4 (9.0-12.0) Seconds INR 1.1 (0.9-1.1) APTT 30.6 (21.0-31.0) Seconds PTT Ratio 1.1 Sodium 138 (136-145) mmol/L Potassium 3.6 (3.5-5.1) mmol/L Chloride 106 (98-107) mmol/L Carbon Dioxide 30 (21-32) mmol/L Anion Gap 2 L (3-11) BUN 16 (6-23) mg/dl Creatinine 0.70 (0.6-1.4) mg/dl Est Cr Clr Drug Dosing 144.3 ml/min Est GFR ( Amer) 128.4 ml/min Est GFR (Non-Af Amer) 110.8 ml/min BUN/Creatinine Ratio 22.9 H (10-20) Glucose 91 (70-99(Fasting)) mg/dl Calcium 8.3 L (8.5-10.1) mg/dl Phosphorus 2.5 (2.5-4.9) mg/dl Magnesium 2.0 (1.7-2.4) mg/dl Urine Color Urine Appearance (Clear) Urine pH (4.5-7.5) Ur Specific [place] (1.000-1.030) Urine Protein (Negative) Urine Glucose (UA) (Negative) Urine Ketones (Negative) Urine Blood (Negative) Urine Nitrite (Negative) Urine Bilirubin (Negative) Urine Urobilinogen (Negative) Ur Leukocyte Esterase (Negative) Urine WBC (Auto) (0-5) /hpf Urine RBC (Auto) (0-4) /hpf U Hyaline Cast (Auto) (0-5) /lpf U Epithel Cells (Auto) (0-5) /lpf Urine Bacteria (Auto) (Negative) 09/25/22 Range/Units 18:35 WBC (4.8-10.8) K/ul RBC (4.70-6.10) M/uL Hgb (14.0-18.0) g/dl Hct (42.0-52.0) % MCV (80.0-100.0) fL MCH (25.0-34.0) pg MCHC (32.0-36.0) g/dL RDW Std Deviation (36.4-46.3) fL RDW Coeff of Aruna (11.5-14.5) % Plt Count (130-400) K/uL MPV (9.4-12.4) fL Immature Gran % (Auto) % Neut % (Auto) % Lymph % (Auto) % [place] % (Auto) % Eos % (Auto) % Baso % (Auto) % Neut # (Auto) (1.40-6.50) K/uL Lymph # (Auto) (1.2-3.4) K/uL [place] # (Auto) (0.11-0.59) K/uL Eos # (Auto) (0-0.50) K/uL Baso # (Auto) (0-0.2) K/uL Immature Gran # (Auto) (0.01-0.20) K/uL PT (9.0-12.0) Seconds INR (0.9-1.1) APTT (21.0-31.0) Seconds PTT Ratio Sodium (136-145) mmol/L Potassium (3.5-5.1) mmol/L Chloride (98-107) mmol/L Carbon Dioxide (21-32) mmol/L Anion Gap (3-11) BUN (6-23) mg/dl Creatinine (0.6-1.4) mg/dl Est Cr Clr Drug Dosing ml/min Est GFR ( Amer) ml/min Est GFR (Non-Af Amer) ml/min BUN/Creatinine Ratio (10-20) Glucose (70-99(Fasting)) mg/dl Calcium (8.5-10.1) mg/dl Phosphorus (2.5-4.9) mg/dl Magnesium (1.7-2.4) mg/dl Urine Color Dark Yellow Urine Appearance Clear (Clear) Urine pH 5.5 (4.5-7.5) Ur Specific [place] > 1.045 H (1.000-1.030) Urine Protein Trace H (Negative) Urine Glucose (UA) Negative (Negative) Urine Ketones 2+ H (Negative) Urine Blood Trace H (Negative) Urine Nitrite Negative (Negative) Urine Bilirubin Negative (Negative) Urine Urobilinogen Negative (Negative) Ur Leukocyte Esterase Negative (Negative) Urine WBC (Auto) 1-5 (0-5) /hpf Urine RBC (Auto) 5-10 H (0-4) /hpf U Hyaline Cast (Auto) 1-5 (0-5) /lpf U Epithel Cells (Auto) 5-10 H (0-5) /lpf Urine Bacteria (Auto) Negative (Negative) Diagnostic Findings KUB CLINICAL HISTORY: Follow-up small bowel obstruction. FINDINGS: 3 AP supine abdominal radiographs are correlated with abdominal CT dated 09/25/2022. There are persistent distended and gas-filled loops of small bowel which measure up to 3.6 cm. This likely represents persistent small bowel obstruction. There is no complete obstruction, as gas is noted within the colon. No evidence of intraperitoneal free air is seen on these supine images. There are no abnormal abdominal calcifications. The bony structures appear intact. IMPRESSION: There is evidence of persistent small bowel obstruction. This is likely partial.
[2022-09-26] MEDS ORDERED: Heparin IV Adult Wt-Based Standard *NO* Bolus Protocol IV ONE (21:00)
[2022-09-26] MEDS ORDERED: HEPARIN SODIUM/DEXTROSE 25,000 UNITS/500 ML BAG IV SCH (21:00)
[2022-09-27 03:59] LABS: Partial Thromboplastin Ratio 1.8
[2022-09-27] MEDS: D5W AND NSS 1,000 ML IV SCH (04:07)
[2022-09-27 04:10] LABS: Partial Thromboplastin Time 50.2 Seconds (21.0-31.0)
[2022-09-27] MEDS: ACETAMINOPHEN 1,000 MG/100 ML VIAL IV SCH (06:16)
[2022-09-27 07:32] LABS: Hematocrit (blood only) 38.8 % (42.0-52.0); Hemoglobin 13.9 g/dl (14.0-18.0); Mean Corpuscular Hemoglobin 32.9 pg (25.0-34.0); Mean Corpuscular Hgb Conc 35.8 g/dL (32.0-36.0); Mean Corpuscular Volume 91.7 fL (80.0-100.0); Mean Platelet Volume 9.3 fL (9.4-12.4); Platelet Count 221 K/uL (130-400); RDW Coefficient of Variation 12.2 % (11.5-14.5); RDW Standard Deviation 41.1 fL (36.4-46.3); Red Blood Count 4.23 M/uL (4.70-6.10)
[2022-09-27 07:34] LABS: Partial Thromboplastin Ratio 2.2
[2022-09-27 07:40] LABS: Partial Thromboplastin Time 59.5 Seconds (21.0-31.0)
--- NOTE | 2022-09-27 08:40 | Surgery Progress Note ---
Date of Service September 27, 2022 Assessment & Plan (1) Partial small bowel obstruction: Plan: 47 year-old male who presents to ER with 3 days history abdominal pain with nausea and vomiting, PSBO on CT scan, likely secondary to gastrointestinal illness, no prior history of abdominal surgeries. Kids had vomiting last week. 09/27/2022 + flatus abdominal pain , n,v resolved Plan: No surgical intervention required at this time advance to full liquids encouraged ambulating hallway to increase GI motility Continue medical management probably can advance to low fiber and d/c home today if does well Discussed with Dr. Patrick who agrees with above. Admission and Anticipated Discharge Date Admission Date: September 25, 2022 Subjective feeling great again today no abdominal pain no n,v tolerated clear liquids passing more gas today, no bowel movement yet Physical Exam Constitutional: WD/WN, vitals as above + obese, cooperative and comfortable; no acute distress and not ill appearing Gastrointestinal (Abdomen): Inspection/Auscultation: abdomen normal to inspection and + hypoactive bowel sounds; abdomen not distended Percussion/Palpation: abdomen soft; abdomen nontender, no guarding and abdomen not rigid Skin: no rashes, warm and dry Psychiatric: A+Ox3, euthymic affect Results & Data ([facility]) Vital Signs (Past 12 Hours) Vital Signs Temp Pulse Resp BP Pulse Ox O2 Del Method 09/27/22 07:28 36.4 C L 63 16 128/80 94 Room Air 09/26/22 21:43 36.9 C 59 L 18 143/91 H 98 Room Air Laboratory Results 09/27/22 09/27/22 09/27/22 Range/Units 06:33 06:33 06:33 WBC 6.30 (4.8-10.8) K/ul RBC 4.23 L (4.70-6.10) M/uL Hgb 13.9 L (14.0-18.0) g/dl Hct 38.8 L (42.0-52.0) % MCV 91.7 (80.0-100.0) fL MCH 32.9 (25.0-34.0) pg MCHC 35.8 (32.0-36.0) g/dL RDW Std Deviation 41.1 (36.4-46.3) fL RDW Coeff of Aruna 12.2 (11.5-14.5) % Plt Count 221 (130-400) K/uL MPV 9.3 L (9.4-12.4) fL Immature Gran % (Auto) % Neut % (Auto) % Lymph % (Auto) % [place] % (Auto) % Eos % (Auto) % Baso % (Auto) % Neut # (Auto) (1.40-6.50) K/uL Lymph # (Auto) (1.2-3.4) K/uL [place] # (Auto) (0.11-0.59) K/uL Eos # (Auto) (0-0.50) K/uL Baso # (Auto) (0-0.2) K/uL Immature Gran # (Auto) (0.01-0.20) K/uL PT (9.0-12.0) Seconds INR (0.9-1.1) APTT 59.5 H* (21.0-31.0) Seconds PTT Ratio 2.2 Sodium Pending (136-145) mmol/L Potassium Pending (3.5-5.1) mmol/L Chloride Pending (98-107) mmol/L Carbon Dioxide Pending (21-32) mmol/L Anion Gap Pending (3-11) BUN Pending (6-23) mg/dl Creatinine Pending (0.6-1.4) mg/dl Est Cr Clr Drug Dosing Pending ml/min Est GFR ( Amer) Pending ml/min Est GFR (Non-Af Amer) Pending ml/min BUN/Creatinine Ratio Pending (10-20) Glucose Pending (70-99(Fasting)) mg/dl Calcium Pending (8.5-10.1) mg/dl Phosphorus (2.5-4.9) mg/dl Magnesium (1.7-2.4) mg/dl 09/27/22 09/26/22 09/26/22 Range/Units 02:51 09:35 08:16 WBC (4.8-10.8) K/ul RBC (4.70-6.10) M/uL Hgb (14.0-18.0) g/dl Hct (42.0-52.0) % MCV (80.0-100.0) fL MCH (25.0-34.0) pg MCHC (32.0-36.0) g/dL RDW Std Deviation (36.4-46.3) fL RDW Coeff of Aruna (11.5-14.5) % Plt Count (130-400) K/uL MPV (9.4-12.4) fL Immature Gran % (Auto) % Neut % (Auto) % Lymph % (Auto) % [place] % (Auto) % Eos % (Auto) % Baso % (Auto) % Neut # (Auto) (1.40-6.50) K/uL Lymph # (Auto) (1.2-3.4) K/uL [place] # (Auto) (0.11-0.59) K/uL Eos # (Auto) (0-0.50) K/uL Baso # (Auto) (0-0.2) K/uL Immature Gran # (Auto) (0.01-0.20) K/uL PT 11.4 (9.0-12.0) Seconds INR 1.1 (0.9-1.1) APTT 50.2 H* 30.6 (21.0-31.0) Seconds PTT Ratio 1.8 1.1 Sodium 138 (136-145) mmol/L Potassium 3.6 (3.5-5.1) mmol/L Chloride 106 (98-107) mmol/L Carbon Dioxide 30 (21-32) mmol/L Anion Gap 2 L (3-11) BUN 16 (6-23) mg/dl Creatinine 0.70 (0.6-1.4) mg/dl Est Cr Clr Drug Dosing 144.3 ml/min Est GFR ( Amer) 128.4 ml/min Est GFR (Non-Af Amer) 110.8 ml/min BUN/Creatinine Ratio 22.9 H (10-20) Glucose 91 (70-99(Fasting)) mg/dl Calcium 8.3 L (8.5-10.1) mg/dl Phosphorus 2.5 (2.5-4.9) mg/dl Magnesium 2.0 (1.7-2.4) mg/dl 09/26/22 Range/Units 08:16 WBC 6.81 (4.8-10.8) K/ul RBC 4.55 L (4.70-6.10) M/uL Hgb 14.9 (14.0-18.0) g/dl Hct 42.3 (42.0-52.0) % MCV 93.0 (80.0-100.0) fL MCH 32.7 (25.0-34.0) pg MCHC 35.2 (32.0-36.0) g/dL RDW Std Deviation 43.0 (36.4-46.3) fL RDW Coeff of Aruna 12.5 (11.5-14.5) % Plt Count 215 (130-400) K/uL MPV 8.9 L (9.4-12.4) fL Immature Gran % (Auto) 0.3 % Neut % (Auto) 56.6 % Lymph % (Auto) 26.2 % [place] % (Auto) 10.7 % Eos % (Auto) 5.8 % Baso % (Auto) 0.4 % Neut # (Auto) 3.97 (1.40-6.50) K/uL Lymph # (Auto) 1.84 (1.2-3.4) K/uL [place] # (Auto) 0.75 H (0.11-0.59) K/uL Eos # (Auto) 0.41 (0-0.50) K/uL Baso # (Auto) 0.03 (0-0.2) K/uL Immature Gran # (Auto) 0.02 (0.01-0.20) K/uL PT (9.0-12.0) Seconds INR (0.9-1.1) APTT (21.0-31.0) Seconds PTT Ratio Sodium (136-145) mmol/L Potassium (3.5-5.1) mmol/L Chloride (98-107) mmol/L Carbon Dioxide (21-32) mmol/L Anion Gap (3-11) BUN (6-23) mg/dl Creatinine (0.6-1.4) mg/dl Est Cr Clr Drug Dosing ml/min Est GFR ( Amer) ml/min Est GFR (Non-Af Amer) ml/min BUN/Creatinine Ratio (10-20) Glucose (70-99(Fasting)) mg/dl Calcium (8.5-10.1) mg/dl Phosphorus (2.5-4.9) mg/dl Magnesium (1.7-2.4) mg/dl
[2022-09-27 08:57] LABS: BUN Creatinine Ratio 8.7 (10-20); Calcium 8.4 mg/dl (8.5-10.1); Creatinine Clr Calc Pharmacy 146.4 ml/min; Est GFR (African American) 129.2 ml/min; Est GFR (Non-African American) 111.5 ml/min; Potassium 3.6 mmol/L (3.5-5.1)
[2022-09-27] MEDS ORDERED: SODIUM CHLORIDE 0.9% 1000ML 1,000 ML IV SCH (09:45)
[2022-09-27 10:38] LABS: Adenovirus F 40/41 PCR Not Detected (NotDetected); Astrovirus PCR Not Detected (NotDetected); Campylobacter PCR Not Detected (NotDetected); Cryptosporidium PCR Not Detected (NotDetected); Cyclospora cayetanensis PCR Not Detected (NotDetected); Entamoeba histolytica PCR Not Detected (NotDetected); Enteroaggregative E.coli(EAEC) Not Detected (NotDetected); Enteropathogenic E.coli (EPEC) Not Detected (NotDetected); Enterotoxigenic E.coli (ETEC) Not Detected (NotDetected); Giardia lamblia PCR Not Detected (NotDetected); Plesiomonas shigelloides PCR Not Detected (NotDetected); Rotavirus A PCR Not Detected (NotDetected); Salmonella PCR Not Detected (NotDetected); Sapovirus PCR Not Detected (NotDetected); Shiga-like Toxin E.coli (STEC) Not Detected (NotDetected); Shigella/Enteroinvasive E.coli Not Detected (NotDetected); Vibrio cholerae PCR Not Detected (NotDetected); Vibrio species PCR Not Detected (NotDetected); Yersinia enterocolitica PCR Not Detected (NotDetected)
[2022-09-27 10:41] LABS: Norovirus GI/GII PCR DETECTED (NotDetected)
--- NOTE | 2022-09-27 13:23 | Hospitalist Progress Note ---
Date of Service September 27, 2022 Assessment & Plan (1) Partial small bowel obstruction: (2) Factor V Leiden mutation: (3) MTHFR gene mutation: (4) Obesity (BMI 35.0-39.9 without comorbidity): Plan: This is a 47 yo M with PMHx of Factor V Leiden, MTHFR mutation, with hx of PE , tobacco use disorder, obesity with BMI of 26 and hx of COVID-19 who presents with worsening abdominal pain for the past 2 days and was found to have small bowel obstruction. Partial small bowel obstruction Possibly secondary to an acute GI illness KUB still showing persistent partial SBO Advance diet as tolerated Appreciate surgery input Continue IV fluids Factor V Leiden mutation MTHFR gene mutation H/O PE/DVT IV heparin discontinued Resume Eliquis Obesity Encourage diet and weight loss with BMI of 36.1 DVT Px: SCDs, Eliquis Code Status: Full Code Admission and Anticipated Discharge Date Admission Date: September 25, 2022 Subjective Patient is seen and examined at bedside States feeling well today Had bowel movement Tolerating diet Discussed with surgery today Denies any nausea, vomiting, abdominal pain, chest pain, dyspnea Plan to discharge home today Review of Systems Review of Systems: All systems reviewed & are unremarkable except as noted in Subjective Physical Exam Physical Exam: Physical Exam: Vitals signs as noted above General Appearance:Moderately built and nourished, no apparent distress Head: normocephalic, Atraumatic Eyes: normal inspection, EOMI Neck: supple, Trachea midline Respiratory/Chest: Normal breath sounds, CTA, No accessory muscle use Cardiovascular: S1, S2, No murmur Abdomen/GI:Soft, Non tender, Bowel sounds present Extremities/Musculoskeletal:normal inspection, no edema Neurologic/Psych:AAOX3, grossly no focal neurological deficits Skin: normal color, warm Results & Data Results & Data ([facility]) Vital Signs (Past 12 Hours) Vital Signs Temp Pulse Resp BP Pulse Ox O2 Del Method 09/27/22 07:28 36.4 C L 63 16 128/80 94 Room Air Laboratory Results Short CBC 09/27/22 Range/Units 06:33 WBC 6.30 (4.8-10.8) K/ul Hgb 13.9 L (14.0-18.0) g/dl Hct 38.8 L (42.0-52.0) % Plt Count 221 (130-400) K/uL BMP 09/27/22 06:33 Sodium 140 Potassium 3.6 Chloride 108 H Carbon Dioxide 28 BUN 6 Creatinine 0.69 Glucose 122 H Calcium 8.4 L
--- NOTE | 2022-09-27 14:04 | Discharge Summary ---
Date of Service September 27, 2022 Admission HPI Per Admitting Provider This is a 47 yo M with PMHx of Factor V Leiden, MTHFR mutation, with hx of PE , tobacco use disorder, obesity with BMI of 26 and hx of COVID-19 who presents with worsening abdominal pain for the past 2 days. He notes that on Friday after eating lunch she became ill, with nausea, vomiting and abdominal pain. He was unable to tolerate much p.o. intake the rest of Friday. Again on Friday he proceeded to have 2 bouts of nausea and vomiting with mostly bile-like emesis. He has been bloated as well. This morning he again was nauseous and vomited. He also reports having 1 bowel movement this morning which was normal formed stool, no blood. He has not passed any flatus since bowel movement today. He notes that his 2 children ages 8 and 9 had GI illness last week 1 at the beginning of the week and the other had it later in the week with nausea and vomiting. So initially the patient presumed that he had same thing as his kids did. Due to progressive pain he presented to the ER. He has not had anything to eat or drink today. Patient did take his morning Eliquis. He denies any history of surgeries other than fixing a broken nose many years ago. Denies any abdominal procedures or prior issues with bowels. Imaging reveals partial small bowel obstruction with trace ascites, colonic diverticulosis. Discussion was held with Dr. Patrick, general surgery at bedside, he agrees to proceed with conservative treatment. No need for NG tube or surgical procedure at this time. Admission Exam Per Admitting Provider Physical Exam Physical Exam: General: awake, alert, no apparent distress, obese with BMI of 36 Head: Normocephalic, atraumatic ENT: PERRL, EOMI, no pharyngeal exudate, mucous membranes moist Chest: Clear to auscultation, on room air, no adventitious breath sounds Cardiac: Regular rate and rhythm, no murmur, no JVD, normal peripheral pulses, good capillary refill Abdominal: hypoactive BS x 4 quadrants, no high pitched tinkling, mildly distended, RUQ tenderness to palpation, no rebound or guarding Extremities: Normal inspection, no peripheral edema or erythema, calfs nontender to palpation Psych: Normal mood and affect Neuro: AAO x 3, strength intact bilaterally and rated 5/5, no motor deficits, speech is clear, no peripheral sensory deficits Principal Diagnosis Partial small bowel obstruction Norovirus infection Discharge Data Allergies Allergy/AdvReac Type Severity Reaction Status Date / Time No Known Allergies Allergy Unverified 11/14/12 11:48 Consultations 09/25/22 10:25 ED Decision to Admit Stat 09/25/22 13:01 Consult General Surgery Routine Procedures Performed Laboratory Results WBC 6.30 K/ul (4.8-10.8) 09/27/22 06:33 RBC 4.23 M/uL (4.70-6.10) L 09/27/22 06:33 Hgb 13.9 g/dl (14.0-18.0) L 09/27/22 06:33 Hct 38.8 % (42.0-52.0) L 09/27/22 06:33 MCV 91.7 fL (80.0-100.0) 09/27/22 06:33 MCH 32.9 pg (25.0-34.0) 09/27/22 06:33 MCHC 35.8 g/dL (32.0-36.0) 09/27/22 06:33 RDW Std Deviation 41.1 fL (36.4-46.3) 09/27/22 06:33 RDW Coeff of Aruna 12.2 % (11.5-14.5) 09/27/22 06:33 Plt Count 221 K/uL (130-400) 09/27/22 06:33 MPV 9.3 fL (9.4-12.4) L 09/27/22 06:33 Immature Gran % (Auto) 0.3 % 09/26/22 08:16 Neut % (Auto) 56.6 % 09/26/22 08:16 Lymph % (Auto) 26.2 % 09/26/22 08:16 Wheeler % (Auto) 10.7 % 09/26/22 08:16 Eos % (Auto) 5.8 % 09/26/22 08:16 Baso % (Auto) 0.4 % 09/26/22 08:16 Neut # (Auto) 3.97 K/uL (1.40-6.50) 09/26/22 08:16 Lymph # (Auto) 1.84 K/uL (1.2-3.4) 09/26/22 08:16 Wheeler # (Auto) 0.75 K/uL (0.11-0.59) H 09/26/22 08:16 Eos # (Auto) 0.41 K/uL (0-0.50) 09/26/22 08:16 Baso # (Auto) 0.03 K/uL (0-0.2) 09/26/22 08:16 Immature Gran # (Auto) 0.02 K/uL (0.01-0.20) 09/26/22 08:16 PT 11.4 Seconds (9.0-12.0) 09/26/22 09:35 INR 1.1 (0.9-1.1) 09/26/22 09:35 APTT 59.5 Seconds (21.0-31.0) H* 09/27/22 06:33 PTT Ratio 2.2 09/27/22 06:33 Sodium 140 mmol/L (136-145) 09/27/22 06:33 Potassium 3.6 mmol/L (3.5-5.1) 09/27/22 06:33 Chloride 108 mmol/L (98-107) H 09/27/22 06:33 Carbon Dioxide 28 mmol/L (21-32) 09/27/22 06:33 Anion Gap 4 (3-11) 09/27/22 06:33 BUN 6 mg/dl (6-23) 09/27/22 06:33 Creatinine 0.69 mg/dl (0.6-1.4) 09/27/22 06:33 Est Cr Clr Drug Dosing 146.4 ml/min 09/27/22 06:33 Est GFR ( Amer) 129.2 ml/min 09/27/22 06:33 Est GFR (Non-Af Amer) 111.5 ml/min 09/27/22 06:33 BUN/Creatinine Ratio 8.7 (10-20) L 09/27/22 06:33 Glucose 122 mg/dl (70-99(Fasting)) H 09/27/22 06:33 Lactate 0.7 mmol/L (0.4-2.0) 09/25/22 12:23 Calcium 8.4 mg/dl (8.5-10.1) L 09/27/22 06:33 Phosphorus 2.5 mg/dl (2.5-4.9) 09/26/22 08:16 Magnesium 2.0 mg/dl (1.7-2.4) 09/26/22 08:16 Total Bilirubin 0.5 mg/dl (0.2-1.0) 09/25/22 06:20 AST 19 U/L (13-39) 09/25/22 06:20 ALT 23 U/L (7-52) 09/25/22 06:20 Alkaline Phosphatase 51 U/L (34-104) 09/25/22 06:20 Total Protein 7.3 gm/dl (6.0-8.3) 09/25/22 06:20 Albumin 3.8 gm/dl (3.4-5.0) 09/25/22 06:20 Globulin 3.5 gm/dl (2.5-4.0) 09/25/22 06:20 Albumin/Globulin Ratio 1.1 (0.9-2) 09/25/22 06:20 Lipase 12 U/L (11-82) 09/25/22 06:20 Urine Color Dark Yellow 09/25/22 18:35 Urine Appearance Clear (Clear) 09/25/22 18:35 Urine pH 5.5 (4.5-7.5) 09/25/22 18:35 Ur Specific Perrin > 1.045 (1.000-1.030) H 09/25/22 18:35 Urine Protein Trace (Negative) H 09/25/22 18:35 Urine Glucose (UA) Negative (Negative) 09/25/22 18:35 Urine Ketones 2+ (Negative) H 09/25/22 18:35 Urine Blood Trace (Negative) H 09/25/22 18:35 Urine Nitrite Negative (Negative) 09/25/22 18:35 Urine Bilirubin Negative (Negative) 09/25/22 18:35 Urine Urobilinogen Negative (Negative) 09/25/22 18:35 Ur Leukocyte Esterase Negative (Negative) 09/25/22 18:35 Urine WBC (Auto) 1-5 /hpf (0-5) 09/25/22 18:35 Urine RBC (Auto) 5-10 /hpf (0-4) H 09/25/22 18:35 U Hyaline Cast (Auto) 1-5 /lpf (0-5) 09/25/22 18:35 U Epithel Cells (Auto) 5-10 /lpf (0-5) H 09/25/22 18:35 Urine Bacteria (Auto) Negative (Negative) 09/25/22 18:35 Stl C. cayetanensis PCR Not Detected (NotDetected) 09/27/22 08:50 Stool Rotavirus A PCR Not Detected (NotDetected) 09/27/22 08:50 Stl Adenov F 40/41 PCR Not Detected (NotDetected) 09/27/22 08:50 Stool Astrovirus (PCR) Not Detected (NotDetected) 09/27/22 08:50 Stool Campylobacter PCR Not Detected (NotDetected) 09/27/22 08:50 Stool Cryptosporidium PCR Not Detected (NotDetected) 09/27/22 08:50 Stl E.coli Shiga Tox PCR Not Detected (NotDetected) 09/27/22 08:50 Stl Enterotoxigenic E PCR Not Detected (NotDetected) 09/27/22 08:50 Stool EPEC (PCR) Not Detected (NotDetected) 09/27/22 08:50 Stool EAEC (PCR) Not Detected (NotDetected) 09/27/22 08:50 Stl E. histolytica PCR Not Detected (NotDetected) 09/27/22 08:50 Stool Giardia Lamblia PCR Not Detected (NotDetected) 09/27/22 08:50 Stool Salmonella PCR Not Detected (NotDetected) 09/27/22 08:50 Stool Sapovirus (PCR) Not Detected (NotDetected) 09/27/22 08:50 Stl P. shigelloides PCR Not Detected (NotDetected) 09/27/22 08:50 Stl Shigella/EIEC PCR Not Detected (NotDetected) 09/27/22 08:50 St Y.enterocolitica PCR Not Detected (NotDetected) 09/27/22 08:50 Stool Vibrio (PCR) Not Detected (NotDetected) 09/27/22 08:50 Stl Vibrio cholerae PCR Not Detected (NotDetected) 09/27/22 08:50 Stl Norovirus GI/GII PCR DETECTED (NotDetected) A* 09/27/22 08:50 SARS-CoV-2, RNA, NAAT NEGATIVE (NEGATIVE) 09/25/22 11:00 Impressions Abdomen/Pelvis CT 09/25/22 06:[address] WITH IV CONTRAST CT DOSE: 1221.58 mGy.cm HISTORY: Acute generalized abdominal pain diffuse upper abdominal pain TECHNIQUE: Multiaxial CT images of the abdomen and pelvis were performed following the IV administration of 94 cc of Optiray, A dose lowering technique was utilized adhering to the principles of ALARA. COMPARISON STUDY: Scrotal ultrasound 11/09/2013 FINDINGS: The imaged lower chest demonstrates no acute abnormality. The heart is upper limits of normal in size. No pneumatosis or pneumoperitoneum. The spleen, pancreas, gallbladder, adrenal glands and liver appear unremarkable. Patency of the hepatic and portal veins. There are a few subcentimeter hypodense foci of the kidneys which are too small to characterize, likely cysts. No hydronephrosis. Prostamegaly. Mild urinary bladder wall thickening with partial distention. Aorta and IVC are unremarkable. No lymphadenopathy. Colonic diverticulosis. Air-fluid levels are noted throughout the colon and rectum. Noninflamed appendix. Fluid-filled mildly dilated loops of small bowel measure up to 3.2 cm. Mild interloop edema with trace ascites. Decompressed loops of bowel within the abdominal right lower quadrant. No significant bowel wall thickening identified. Tiny fat filled umbilical hernia. No acute fracture. IMPRESSION: 1. Several mildly dilated air and fluid-filled loops of small bowel within the abdomen and pelvis are noted with decompressed loops within the right lower quadrant. Findings are suggestive of a partial small bowel obstruction. Follow- up is needed. 2. Mild interloop edema with trace ascites. 3. Colonic diverticulosis. 4. Normal appendix. ACT 112: Negative or not required by law. The above report was generated using voice recognition software. It may contain grammatical, syntax or spelling errors. Electronically signed by: Patrick Madrigal M.D. 09/25/2022 9:01 AM KUB X-Ray 09/26/22 07:00 KUB CLINICAL HISTORY: Follow-up small bowel obstruction. FINDINGS: 3 AP supine abdominal radiographs are correlated with abdominal CT dated 09/25/2022. There are persistent distended and gas-filled loops of small bowel which measure up to 3.6 cm. This likely represents persistent small bowel obstruction. There is no complete obstruction, as gas is noted within the colon. No evidence of intraperitoneal free air is seen on these supine images. There are no abnormal abdominal calcifications. The bony structures appear intact. IMPRESSION: There is evidence of persistent small bowel obstruction. This is likely partial. Electronically signed by: Rios Larson M.D. 09/26/2022 11:07 AM Ordered Studies 09/25/22 06:40 CT abd pelvis IV con only Stat Hospital Course (1) Partial small bowel obstruction: (2) Factor V Leiden mutation: (3) MTHFR gene mutation: (4) Obesity (BMI 35.0-39.9 without comorbidity): This is a 47 yo M with PMHx of Factor V Leiden, MTHFR mutation, with hx of PE , tobacco use disorder, obesity with BMI of 26 and hx of COVID-19 who presents with worsening abdominal pain for the past 2 days and was found to have small bowel obstruction. Partial small bowel obstruction Possibly secondary to an acute GI illness KUB still showing persistent partial SBO Advance diet as tolerated Appreciate surgery input Continue IV fluids Norovirus infection Likely present on admission Stool studies positive for norovirus Patient admits that family has GI symptoms prior to his admission Conservative management Factor V Leiden mutation MTHFR gene mutation H/O PE/DVT IV heparin discontinued Resume Eliquis Obesity Encourage diet and weight loss with BMI of 36.1 DVT Px: SCDs, Eliquis Code Status: Full Code Total Time Total Time Spent Total Time Spent (In Minutes): 45 minutes Discharge Plan Discharge Items Patient Disposition: Home - Self-Care Reason For Visit: SMALL BOWEL OBSTRUCTION Discharge Diagnosis: Partial small bowel obstruction Norovirus infection Activity: Per Instructions section Exercise/Sports: Gradually increase as tolerated Non-emergency contact: Primary Care Provider and Surgeon Call non-emergency contact if: you have any medication questions, your symptoms worsen, your pain is concerning for you and you have a fever Follow-up/Referrals: Pj Elaine MD [Primary Care Provider] - (Date & Time 10/02/2022 3:00 PM Provider Pj Elaine MD Department Family Medicine [facility] ) Diet: Low Fiber Addtl Attending Provider Instructions: Follow-up with your primary care physician on 10/02/2022 3:00 PM Follow-up with your surgeon Dr. Patrick as needed --Continue low fiber diet for now. Discuss with your primary care physician for further instructions. Seek immediate medical attention if your symptoms reoccur or worsen Please take all medications as instructed on discharge list below. Please call if you have any questions or problems. You can reach a [facility] hospitalist on duty at [facility] 24 hours a day by calling [phone] Pending Studies at Discharge: No Stand-Alone Forms: My [facility], Smoking Cessation Medications and DC Order Prescriptions: Continued cyanocobalamin (vitamin B-12) [Vitamin B-12] 1,000 mcg Tablet 1,000 mcg PO DAILY folic acid 1 mg Tablet 1 mg PO DAILY Eliquis 5 mg tablet 5 mg PO BID Discharge Orders: Discharge Order (Routine); Ordered 09/27/22 Ordered By: Aime Wilhelm Admission Data Admit Date/Time: 09/25/22 10:25 Attending Provider: Aime Wilhelm Admit Provider: Mimi Hansen Primary Care Provider: Pj Elaine Other Providers: Mimi Hansen ; Elaine Patrick ; Zahira Jordan
[2022-09-27] MEDS ORDERED: APIXABAN 5 MG TABLET PO SCH (14:30)
== END 2022-09-27 15:04 | disposition home or self-care (01) ==
LOC: ED 05:56 → INTOOBSV 10:25 → SUATTDRO 10:25 → EDINP 10:25 → 3N 13:01